=== PATIENT | male | born 1990 | race Caucasian/White ===

== ENCOUNTER 2022-09-12 14:42 | Emergency (ER) | payer OTHER ==
[~2022-09-12] VITALS: Ht 177.8 cm; Wt 88.0 kg
[2022-09-12] MEDS ORDERED: LIDOCAINE 1% HCL (LOCAL ANESTH.) INJ 20ML MDV ONE (16:43)
[2022-09-12] MEDS ORDERED: LIDOCAINE 1% HCL (LOCAL ANESTH.) INJ 20ML MDV IJ ONE (16:45)
[2022-09-12] MEDS ORDERED: CIPROFLOXACIN HCL 500 MG TAB PO ONE (17:00)
[2022-09-12 17:29] LABS: Protein, CSF 41.8 mg/dL (15-45)
[2022-09-12 18:03] LABS: CSF White Blood Cells 0 CUMM (0-5)
[2022-09-12 19:00] VITALS: BP 120/77
== END 2022-09-12 19:04 | disposition home or self-care (01) ==
LOC: ER 14:42
DX: R51.9 Headache, unspecified (principal)
CPT/HCPCS: 10160; 70450; 82945; 84157; 87070; 87205; 89051; 99284; J2001

== ENCOUNTER 2023-07-31 22:44 | Emergency (ER) | payer OTHER ==
[~2023-07-31] VITALS: Ht 177.8 cm; Wt 94.0 kg
[2023-07-31] MEDS: ACETAMINOPHEN 500 MG TAB PO ONE (23:01)
[2023-07-31 23:56] LABS: COVID19 ANTIGEN SOFIA FIA NEGATIVE (NEGATIVE); Rapid Influenza A Negative (Negative); Rapid Influenza B Negative (Negative)
[2023-08-01] MEDS ORDERED: AZIT-43 PO (02:18)
[2023-08-01] MEDS ORDERED: PRED20TA2 PO (02:18)
[2023-08-01 02:25] VITALS: BP 111/78; PULSE 81; RESP 16; TEMP 98; O2SAT 98
== END 2023-08-01 02:32 | disposition home or self-care (01) ==
LOC: ER 22:44
DX: J06.9 Acute upper respiratory infection, unspecified (principal); R07.89 Other chest pain; Z20.822 Contact with and (suspected) exposure to COVID-19
CPT/HCPCS: 36415; 71045; 87426; 87804